=== PATIENT | female | born 1995 | race African-American/Black ===

== ENCOUNTER 2021-12-10 20:31 | Emergency (ER) | payer OTHER ==
[2021-12-10] MEDS ORDERED: ACETAMINOPHEN 500 MG TABLET PO STA (21:05)
[2021-12-10] MEDS ORDERED: LIDOCAINE PATCH 5% TOP STA (21:06)
--- NOTE | 2021-12-10 21:10 | ED Physician Documentation ---
History of Present Illness - Stated complaint Stated Complaint: BILAT THIGH PX - Chief complaint Chief Complaint: Ext Problem - Additonal information Additional information: Patient is a 26-year-old female presenting for evaluation of bilateral upper leg pain starting approximately 2 hours ago. Pain is aching and feels tight. Patient reports [place] at [place] softball [place]. She reports not having time to stretch before hand.She denies any particular Motion that she can recall that started the pain but noted that it started towards the beginning of the game and then progressively got worse whenever she would try and run.She denies falls. Pain is worse with certain movements and better at rest. She denies other recent exertional activity that would have strained muscles prior to this evening.She does admit that she does not exercise often. She went home and took a naproxen and then called the [facility] nurse advice line. She was directed to the emergency department due to continued pain. She denies trying any other Treatments at home. Patient was able to drive herself and ambulate into the department. She denies fever, chest pain, difficulty breathing, abdominal pain. Review of Systems Constitutional: denies: Fever Nose: denies: Congestion Cardiac: denies: Chest pain / pressure Respiratory: denies: Dyspnea, Cough GI: denies: Abdominal Pain, Vomiting : denies: Dysuria Skin: denies: Rash Musculoskeletal: reports: Extremity pain. denies: Neck pain, Back pain Neurologic: denies: Syncope, Head injury PD PAST MEDICAL HISTORY - Past Medical History Past Medical History: No - Past Surgical History Past Surgical History: No - Present Medications Home Medications: Ambulatory Orders Medication Instructions Recorded Confirmed Etonogestrel [Nexplanon] 68 mg 12/10/21 Meloxicam [Mobic] 7.5 mg PO DAILY PRN 12/10/21 12/10/21 - Allergies Allergies/Adverse Reactions: Allergies Allergy/AdvReac Type Severity Reaction Status Date / Time No Known Drug Allergies Allergy Verified 12/10/21 20:39 - Social History Does the pt smoke?: No Smoking Status: Never smoker Does the pt drink ETOH?: Yes Does the pt have substance abuse?: No - Immunizations Immunizations are current?: Yes PD ED PE NORMAL - General General: Alert and oriented X 3, No acute distress, Well developed/nourished - HEENT HEENT: Atraumatic, Moist mucous membranes - Neck Neck: Supple, no meningeal sign, No bony TTP - Cardiac Cardiac: Strong equal pulses - Respiratory Respiratory: No respiratory distress - Abdomen Abdomen: Normal bowel sounds, Soft, Non tender - Extremities Extremities: No deformity, Normal ROM s pain, No edema, No calf tenderness / cord, Other (No rash, Compartments are soft, Lower extremity pulses intact, abhilash r sensation intact) - Neuro Neuro: No motor deficit, No sensory deficit PD ED PE EXPANDED - Extremities CHRISTOPHER LE visual: 1 - tenderness 2 - tenderness Results - Vitals Vitals: Vital Signs - 24 hr 12/10/21 12/10/21 20:34 21:12 Temperature 36.4 C L 36.5 C Heart Rate 71 72 Respiratory 16 16 Rate Blood Pressure 134/79 H 131/75 H O2 Saturation 100 99 Oxygen O2 Source Room air PD MEDICAL DECISION MAKING - ED course Complexity details: reviewed results, d/w patient ED course: Patient presenting for evaluation of bilateral thigh pain after playing softball 2 hours ago.Patient has no bony tenderness on exam and is full range of motion at all joints. Neurovascularly intact.Few areas of tenderness in the muscle. Do not think her symptoms suggest rhabdo Given the history provided and the timing since activity. Also do not suspect a fracture. No signs of DVT or infection. Patient is able to ambulate. Suspect muscle strain. Patient was counseled on continuing with supportive care but given strict return precautions for any worsening in her pain. Departure - Departure Disposition: 01 Home, Self Care Clinical Impression: Muscle strain of thigh Qualifiers: Encounter type: initial encounter Laterality: left Qualified Code(s): S76.912A - Strain of unspecified muscles, fascia and tendons at thigh level, left thigh, initial encounter Muscle strain of right thigh Qualifiers: Encounter type: initial encounter Qualified Code(s): S76.911A - Strain of unspecified muscles, fascia and tendons at thigh level, right thigh, initial encounter Condition: Stable Instructions: ED Strain Muscle Ext Comments: Kayla - You were evaluated to pain to bilateral thigh areas. I believe you have strained the muscles and ligaments to this area from playing softball this evening. I do not think you have a broken bone. I do not think you have signs of muscle breakdown related to a condition called rhabdomyolysis. I do not think you have signs of infection. At this time I would Continue taking anti- inflammatory medication such as acetaminophen (1000 mg every 6-8 hours as needed for pain) or ibuprofen (800 mg every 6-8 hours as needed for pain). You can also try ice or heat or a topical medication such as icy hot to see if this helps with your symptoms. I would also rest and avoid any strenuous activity that would exacerbate Your pain. I would expect your pain to get better in the next 24 to 48 hours. If your symptoms are worsening, Please return to the emergency department for evaluation. Discharge Date/Time: 12/10/21 21:22
[2021-12-10 21:16] VITALS: BP 131/75
== END 2021-12-10 21:22 | disposition home or self-care (01) ==
LOC: ED 20:31
DX: S76.912A Strain of unspecified muscles, fascia and tendons at thigh level, left thigh, initial encounter (principal); S76.911A Strain of unspecified muscles, fascia and tendons at thigh level, right thigh, initial encounter; X58.XXXA Exposure to other specified factors, initial encounter; Y93.64 Activity, baseball; Y99.8 Other external cause status
CPT/HCPCS: 99282; A9270

== ENCOUNTER 2022-03-19 16:06 | Outpatient (CLI) | payer OTHER ==
[2022-03-19 17:54] LABS: BASOPHILS % (AUTO) 0.5 %; EOSINOPHILS % (AUTO) 0.5 %; HGB - HEMOGLOBIN 12.6 g/dL (12.0-16.0); LYMPHOCYTES # (AUTO) 2.9 10^3/uL (1.5-3.5); MEAN CORPUSCULAR HEMOGLOBIN 29.2 pg (27.0-31.0); MEAN CORPUSCULAR HGB CONC 33.2 g/dL (32.0-36.0); MEAN PLATELET VOLUME 11.8 fL (7.9-10.8); MONOCYTES # (AUTO) 0.7 10^3/uL (0.0-1.0); MONOCYTES % (AUTO) 9.1 %; NEUTROPHILS # (AUTO) 3.6 10^3/uL (1.5-6.6); NEUTROPHILS % (AUTO) 49.8 %; PLT - PLATELET COUNT 220 10^3/uL (130-450); RED BLOOD COUNT 4.32 10^6/uL (4.20-5.40); RED CELL DISTRIBUTION WIDTH 12.3 % (12.0-15.0); WHITE BLOOD COUNT 7.3 x10^3/uL (4.8-10.8)
[2022-03-19 18:08] LABS: ALBUMIN 3.9 g/dL (3.2-5.5); ALBUMIN/GLOBULIN RATIO 1.2 (1.0-2.2); BILIRUBIN,TOTAL 0.4 mg/dL (0.2-1.0); CALCIUM 9.2 mg/dL (8.5-10.3); CREATININE 0.9 mg/dL (0.4-1.0); POTASSIUM 3.7 mmol/L (3.5-5.0); TOTAL PROTEIN 7.1 g/dL (6.7-8.2)
== END 2022-03-19 16:07 | disposition home or self-care (01) ==
LOC: LAB.N 16:06
PROVIDERS: ATTEND Registered Nurse
DX: R31.21 Asymptomatic microscopic hematuria (principal); R10.9 Unspecified abdominal pain
CPT/HCPCS: 36415; 80053; 83690; 85025

== ENCOUNTER 2023-05-23 08:00 | Outpatient (CLI) | payer OTHER ==
[2023-05-23 18:53] LABS: BASOPHILS % (AUTO) 0.6 %; EOSINOPHILS % (AUTO) 0.5 %; HCT - HEMATOCRIT 35.6 % (37.0-47.0); HGB - HEMOGLOBIN 11.4 g/dL (12.0-16.0); LYMPHOCYTES # (AUTO) 2.1 10^3/uL (1.5-3.5); LYMPHOCYTES % (AUTO) 34.1 %; MEAN CORPUSCULAR HEMOGLOBIN 28.6 pg (27.0-31.0); MEAN CORPUSCULAR VOLUME 89.4 fL (81.0-99.0); MEAN PLATELET VOLUME 11.8 fL (7.9-10.8); MONOCYTES # (AUTO) 0.7 10^3/uL (0.0-1.0); MONOCYTES % (AUTO) 11.1 %; NEUTROPHILS # (AUTO) 3.3 10^3/uL (1.5-6.6); NEUTROPHILS % (AUTO) 53.4 %; PLT - PLATELET COUNT 232 10^3/uL (130-450); RED BLOOD COUNT 3.98 10^6/uL (4.20-5.40); RED CELL DISTRIBUTION WIDTH 12.6 % (12.0-15.0); WHITE BLOOD COUNT 6.2 x10^3/uL (4.8-10.8)
[2023-05-23 19:16] LABS: ALBUMIN 4.1 g/dL (3.2-5.5); ALBUMIN/GLOBULIN RATIO 1.6 (1.0-2.2); ALKALINE PHOSPHATASE 61 IU/L (42-121); ALT ALANINE AMINOTRANSFERASE 11 IU/L (10-60); AST ASPARTATE AMINOTRANSFERASE 16 IU/L (10-42); BILIRUBIN,TOTAL 0.3 mg/dL (0.2-1.0); BUN - BLOOD UREA NITROGEN 15 mg/dL (6-20); CALCIUM 9.1 mg/dL (8.5-10.3); CARBON DIOXIDE - CO2 28 mmol/L (21-32); CHLORIDE 103 mmol/L (101-111); CREATININE 0.7 mg/dL (0.6-1.3); GFR - MDRD 121 (>89); GLUCOSE 91 mg/dL (74-104); POTASSIUM 3.9 mmol/L (3.5-4.5); SODIUM 135 mmol/L (135-145); TOTAL PROTEIN 6.6 g/dL (6.4-8.9)
[2023-05-23 19:20] LABS: HCG,QUALITATIVE BLOOD NEGATIVE
== END 2023-05-23 23:59 | disposition home or self-care (01) ==
LOC: LAB.N 08:00
PROVIDERS: ATTEND Nurse Practitioner
DX: N92.0 Excessive and frequent menstruation with regular cycle (principal)
CPT/HCPCS: 36415; 80053; 84703; 85025